=== PATIENT | male | born 1975 | race Caucasian/White ===

== ENCOUNTER 2021-05-01 18:07 | Emergency (ER) | payer OTHER, SELFPAY ==
[2021-05-01 18:12] VITALS: BP 140/93; PULSE 76; RESP 16; TEMP 36.9; O2SAT 100
[2021-05-01 18:18] VITALS: BP 140/93; PULSE 76; RESP 16; TEMP 36.9; O2SAT 100
--- NOTE | 2021-05-01 18:20 | ED.URI ---
HPI - URI/Sore Throat General Chief Complaint: Upper Respiratory Infection Stated Complaint: sore throat/swollen tonsils Time Seen by Provider: 05/01/21 18:07 Source: patient Mode of arrival: ambulatory Limitations: no limitations History of Present Illness HPI Narrative: 46-year-old male presents to [facility] with complaints of lymphadenopathy, sore throat and postnasal drip for the past 2 weeks. Patient has been taking [id number] ibuprofen with minimal relief. Patient denies sick contacts. Patient denies recent travel. Patient is a non-smoker. Patient denies fever, bodies, chills, nausea, vomiting, diarrhea, runny nose or nasal congestion. Patient will need does not currently have a primary care provider MD elicited complaint: sore throat and other (Postnasal drainage, lymph node swelling) Onset (ago): week(s) (2) Able to tolerate fluids by mouth: Yes Exacerbating factors: nothing Treatments prior to arrival: ibuprofen Related Data Allergies Allergy/AdvReac Type Severity Reaction Status Date / Time codeine Allergy Unknown Verified 12/31/16 13:41 Review of Systems Constitutional: Constitutional: Denies chills, Denies fatigue, Denies fever(s) and Denies weakness ENT: Denies dysphagia, Denies dizziness, Denies epistaxis and Reports sore throat Comments: Postnasal drip Cardiovascular: Cardiovascular: Denies chest pain, Denies rapid heart rate and Denies radiating jaw, neck or arm pain Respiratory: Respiratory: Denies chest congestion, Denies cough, Denies dyspnea and Denies wheezing Gastrointestinal: Gastrointestinal: Denies abdominal pain, Denies diarrhea, Denies nausea and Denies vomiting Integumentary/Breasts: Skin/Breast: Denies rash PMFSH Family History Family History Father Hypertension Family history of elevated blood lipids Sibling Hypertension Mother Hypertension Social History Social History Smoking status: Never smoker Smoking end date: 10/27/05 Alcohol intake: current Comments At time of signature, I agree with nursing past medical, surgical, social and family history. There is no relevant family history pertinent to the presenting complaint. Exam Const: General: no acute distress Nutritional Appearance: well nourished Orientation/consciousness: patient oriented x3 HENMT: Head: normal to inspection Ears: external ears normal, TM's normal bilaterally, EAC's normal and TM abnormal General nose exam: Normal nares present Face and sinus: sinuses nontender Mouth: Yes lip normal and Yes moist mucous membranes Throat: uvula midline Other: Erythema and mild swelling noted to bilateral tonsils. There is mild lymphadenopathy noted to posterior cervical region. Neck: Neck: normal visual inspection and lymphadenopathy bilateral posterior cervical soft Resp: Effort & Inspection: normal respiratory effort, not labored, not tachypneic and no use of accessory muscles Auscultation: clear to auscultation bilaterally Cardio: Rate: regular rate, not bradycardic and not tachycardic Rhythm: regular rhythm Heart sounds: no murmurs Skin: General skin exam: normal color Rashes: no rashes Wounds: no wounds Neuro: General: patient oriented x3 and moves all extremities Psych: Appearance: grossly normal Mental Status: mental status grossly normal Affect: normal affect Attitude: cooperative Thought content: Yes Normal thought content present Course Vital Signs Vital signs: Vital Signs Temperature 36.9 C 05/01/21 18:12 Pulse Rate 76 05/01/21 18:12 Respiratory Rate 16 05/01/21 18:12 Blood Pressure 140/93 H 05/01/21 18:12 Pulse Oximetry 100 05/01/21 18:12 Temperature 36.9 C 05/01/21 18:18 Pulse Rate 76 05/01/21 18:18 Respiratory Rate 16 05/01/21 18:18 Blood Pressure 140/93 H 05/01/21 18:18 Pulse Oximetry 100 05/01/21 18:18 MDM - URI/Sore Thro
== END 2021-05-01 18:46 | disposition home or self-care (01) ==
PROVIDERS: Emergency Provider Nurse Practitioner Family
DX: J02.9 Acute pharyngitis, unspecified (principal)
CPT/HCPCS: 36416; 86308; 87081; 87880; 99203; G0463

== ENCOUNTER 2021-07-16 10:18 | Outpatient (CLI) | payer OTHER, SELFPAY ==
--- NOTE | ~2021-07-16 | CT_ITS ---
EXAMINATION: CT sinus wo con DATE: 07/16/2021 10:48 INDICATION: Chronic sinusitis TECHNIQUE: Computed tomography (CT) of the paranasal sinuses was performed without intravenous contra st. The dose-length product was 329.94 mGy-cm. Automated exposure control and iterative reconstructio n technique were employed. COMPARISON: None FINDINGS: There is a mucous retention cyst in the left maxillary sinus. There is mild left maxillary mucosal thickening. There is leftward nasal septal deviation. Ostiomeatal units are patent. There is mucosal thickening of the sphenoid sinus. Mastoids are pneumatized. No mucoperiosteal reaction. No ai r-fluid levels. IMPRESSION: 1. Mild left maxillary and sphenoid sinus disease. Reviewed, dictated and finalized at location A.
== END 2021-07-16 10:19 | disposition home or self-care (01) ==
PROVIDERS: PCP Internal Medicine; Visit Provider Internal Medicine
DX: J32.9 Chronic sinusitis, unspecified (principal)
CPT/HCPCS: 70486

== ENCOUNTER 2021-09-12 13:45 | Emergency (ER) | payer OTHER, SELFPAY ==
[2021-09-12 14:00] VITALS: BP 149/92; PULSE 80; RESP 16; TEMP 36.8; O2SAT 98
--- NOTE | 2021-09-12 14:02 | ED.URI ---
HPI - URI/Sore Throat General Chief Complaint: Upper Respiratory Infection Stated Complaint: SORE THROAT Time Seen by Provider: 09/12/21 13:50 Source: patient and RN notes reviewed History of Present Illness HPI Narrative: Patient is a 46-year-old male who presents the urgent care with complaints of a sore throat since Friday. Patient states that he took NyQuil last night. Also reports of a mild cough and congestion. Patient states he has had the Pfizer Covid vaccine and has not had Covid in the past. Denies of any known exposure to Covid or strep. States that his girlfriend is a nurse and was wanting him to obtain a rapid Covid test . Patient denies of any fever, chills, nausea, vomiting. No other acute complaints. No acute distress noted. Patient read the plan of care. Some parts of this dictation were generated by voice recognition software and may contain typographical and/or grammatical inaccuracies. Related Data Allergies Allergy/AdvReac Type Severity Reaction Status Date / Time codeine Allergy Unknown unknown Verified 07/23/21 11:06 Review of Systems Review of Systems: CONSTITUTIONAL: Denies fever, chills, or sweats. EYES: Denies visual changes, redness, or discharge. ENT: Denies rhinorrhea, congestion, otalgia. Reports of sore throat CARDIOVASCULAR: Denies chest pain, palpitations, or edema. RESPIRATORY: Reports a mild cough without dyspnea GASTROINTESTINAL: Denies abdominal pain, nausea, vomiting, or diarrhea. GENITOURINARY: Denies dysuria or hematuria. SKIN: Denies rash or itching. MUSCULOSKELETAL: Denies back pain, joint pain, or myalgia. NEUROLOGIC: Denies headache, numbness, or weakness. All other systems reviewed are negative, except as documented in HPI. 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 There is no relevant family history pertinent to the patient complaint. Exam Narrative: GENERAL: This is a well-nourished, well-developed patient, in no apparent distress. HEAD: normocephalic, atraumatic. Mild frontal sinus pressure EYES: PERRL. Sclera clear/white. Vision is grossly intact. EARS: External ears normal, auditory canals clear and without drainage, TMs normal without perforation. Hearing grossly intact. NOSE: External nose normal with no obvious nasal discharge, mildly erythemic nares with clear yellow rhinorrhea. THROAT: Mucous membranes moist, posterior pharynx clear. Moderate postnasal drainage NECK: Neck supple CARDIOVASCULAR: Regular rate and rhythm without murmurs, gallops, or rubs. RESPIRATORY: Clear to auscultation. Breath sounds equal bilaterally. No wheezes, rales, or rhonchi. SKIN: warm, intact with no suspicious lesions or rash, good texture and turgor. NEURO: awake, alert, and oriented to person, place and time. There were no obvious focal neurologic abnormalities. EXTREMITIES: No clubbing, cyanosis, or edema. Course Vital Signs Vital signs: Vital Signs Temperature 98.2 F 09/12/21 14:00 Pulse Rate 80 09/12/21 14:00 Respiratory Rate 16 09/12
== END 2021-09-12 14:34 | disposition home or self-care (01) ==
PROVIDERS: Emergency Provider Nurse Practitioner Family; PCP Internal Medicine
DX: J02.9 Acute pharyngitis, unspecified (principal); Z20.822 Contact with and (suspected) exposure to COVID-19; E78.5 Hyperlipidemia, unspecified
CPT/HCPCS: 87081; 87426; 87880; 99213; C9803; G0463

== ENCOUNTER 2022-12-30 13:21 | Emergency (ER) | payer OTHER, SELFPAY ==
--- NOTE | ~2022-12-30 | XR_ITS ---
EXAMINATION: XR chest 2V DATE: 12/30/2022 13:49 INDICATION: Midsternal chest pain. TECHNIQUE: Frontal and lateral views of the chest were obtained. COMPARISON: None. FINDINGS: There is no pneumonia, pleural effusion, or pneumothorax. The heart size is normal. IMPRESSION: 1. No acute cardiopulmonary disease. Reviewed, dictated and finalized at location A. [facility]
--- NOTE | 2022-12-30 13:23 | ECG_ITS ---
Measurements Intervals [place] Rate: 84 P: 26 SC: 152 QRS: 11 QRSD: 90 T: 48 QT: 338 QTc: 401 Interpretive Statements SINUS RHYTHM DELAYED PRECORDIAL R/S TRANSITION MINIMAL Q WAVES- HIGH LATERAL LEADS BORDERLINE ECG NO PREVIOUS ECG AVAILABLE FOR COMPARISON Electronically Signed On 12-30-2022 16:44:05 [employer] by Joanthon Soriano D.O.
[2022-12-30 13:24] VITALS: BP 159/95; PULSE 88; RESP 16; TEMP 36.9; O2SAT 99
[2022-12-30 13:41] LABS: Basophils Absolute Auto 0.1 K/mm3 (0.0-0.1); Basophils Percent Auto 0.7 % (0.2-1.2); Eosinophils Percent Auto 0.4 % (0-4.4); Hematocrit 45.4 % (42.0-52.0); Hemoglobin 14.6 g/dL (14.0-18.0); Immature Granulocyte Absolute 0.01 K/mm3 (0.00-0.031); Immature Granulocyte Percent A 0.1 % (0-0.5); Lymphocytes Absolute Auto 1.81 K/mm3 (0.9-3.2); Lymphocytes Percent Auto 27.1 % (18.3-44.2); Mean Corpuscular HGB Conc 32.2 g/dl (32-36); Mean Corpuscular Hemoglobin 26.8 pg (26-34); Mean Corpuscular Volume 83.3 fl (80-100); Mean Platelet Volume 9.4 fl (7.4-10.4); Monocytes Absolute Auto 0.5 K/mm3 (0.1-0.6); Monocytes Percent Auto 7.3 % (2.6-8.5); Neutrophils Absolute Auto 4.3 K/mm3 (1.3-6.7); Neutrophils Percent Auto 64.4 % (45.5-73.1); Platelet Count Result 285 k/mm3 (150-375); Red Blood Count 5.45 M/mm3 (4.6-6.20); Red Cell Distribution Width 12.8 % (11.5-14.5); White Blood Count 6.7 K/mm3 (4.5-10.0)
[2022-12-30 13:52] LABS: Alanine Aminotransferase 36 U/L (6-50); Albumin Level 4.9 g/dL (3.5-5.1); Alkaline Phosphatase 49 U/L (38-126); Anion Gap 9 mmol/L (8-16); Aspartate Amino Transferase 33 U/L (17-59); Bilirubin,Total 0.7 mg/dL (0.2-1.3); Blood Urea Nitrogen 12 mg/dL (9-20); Calcium 9.2 mg/dL (8.4-10.2); Carbon Dioxide 26 mmol/L (22-30); Chloride 105 mmol/L (98-107); Estimated CRCL calculation 96 ml/min; Estimated Glomerular Filt Rate > 60; Glucose 103 mg/dL (65-110); Lipase 73 U/L (23-300); Potassium 4.7 mmol/L (3.4-5.0); Prothrombin Time 12.5 Seconds (11.1-14.7); Sodium 140 mmol/L (137-145)
[2022-12-30 13:53] LABS: Partial Thromboplastin Time 26.4 SECONDS (22.3-36.8)
[2022-12-30 14:02] LABS: Troponin I < 0.012 ng/mL (0.000-0.034)
[2022-12-30 19:26] LABS: Troponin I < 0.012 ng/mL (0.000-0.034)
--- NOTE | 2022-12-30 19:59 | PC.NURSE ---
Patient denies chest pain at this time, but states when he is walking he gets pain in the epigastric area that radiates to his left shoulde.
[2022-12-30 20:00] VITALS: BP 170/105; PULSE 87; RESP 20; O2SAT 100
--- NOTE | 2022-12-30 20:54 | ED.GENADULT ---
HPI - General Adult General Chief complaint: Chest Pain Stated complaint: abd/chest pain Time Seen by Provider: 12/30/22 19:59 History of Present Illness HPI narrative: this is a 47-year-old male presenting ED with a chief complaint of abdominal and chest pain. The pain started yesterday at 1:00 p.m.. He described as a sharp pain that is in his epigastric area, between his shoulder blades and in the center of his chest. It was 8 out of 10 in intensity yesterday but improved without intervention. It was gradual in onset. He has never had pain like this before. He then went to the gym again today while on the treadmill started to experience the pain again. Says the pain improved when he sat down. There was some nausea but no associated vomiting. He did say became slightly diaphoretic. He denies shortness of breath, fever, chills, productive cough, lower extremity edema. Patient states he has multiple family members who suffered heart attacks in their 40s. Patient is concerned that he is having a heart attack. Related Data Allergies Allergy/AdvReac Type Severity Reaction Status Date / Time codeine Allergy Unknown unknown Verified 07/23/21 11:06 [facility] Past Medical History Medical History Anxiety Benign essential hypertension Other and unspecified hyperlipidemia Routine medical exam RUQ abdominal pain Family History Family History Sibling Hypertension Diabetes mellitus Depression Anxiety Multiple sclerosis Mother Hypertension Diabetes mellitus Heart disease Father Hypertension Social History Social History Smoking status: Never smoker Smoking end date: 10/27/05 Alcohol intake: never Substance use: never Living arrangements: with family Occupation/Education: occupation 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 EYES: EOMI, NOSE: Atraumatic NECK: Trachea midline RESPIRATORY: No increased rate of breathing, clear to auscultation CARDIOVASCULAR: RRR, no peripheral edema ABDOMINAL: Non-distended, nontender no guarding or rebound MUSCULOSKELETAL: No obvious deformities NEURO: Alert. Moving 4/4 extremities SKIN:: Warm, dry. Normal color PSYCHIATRIC: Anxious Course Vital Signs Vital signs: Vital Signs Temperature 98.4 F 12/30/22 13:24 Pulse Rate 88 12/30/22 13:24 Respiratory Rate 16 12/30/22 13:24 Blood Pressure 159/95 H 12/30/22 13:24 Pulse Oximetry 99 12/30/22 13:24 Oxygen Delivery Room Air 12/30/22 13:24 Temperature 98.4 F 12/30/22 13:24 Pulse Rate 87 12/30/22 20:00 Respiratory Rate 20 12/30/22 20:00 Blood Pressure 170/105 H 12/30/22 20:00 Pulse Oximetry 100 12/30/22 20:00 Oxygen Delivery Room Air 12/30/22 13:24 Medical Decision Making MDM Narrative Medical decision making narrative: -Presentation: 47-year-old male presenting with intermittent abdominal pain, chest pain and back pain. Patient is not currently experiencing any pain -DDX includes but is not limited to: ACS, GERD, pneumonia, anxiety -Co-morbidities complicating care: anxiety, hypertension, family history of early DE in several uncles -Social determinants of health: patient is employed, lives with his -External Chart Review: the previous clinic visits for chronic sinusitis -Hx from independent Sources: none -Discussion of Management/Consultants: none -Independent interpretation of studies: Independent EKG interpretation: Rhythm [sinus], Rate [84], [place] -[normal], [place] -[normal], QRS [narrow], QTC [normal], T waves -[negative for concerning inversions], ST Segments - [[place]
[2022-12-30 21:03] LABS: Troponin I < 0.012 ng/mL (0.000-0.034)
== END 2022-12-30 21:30 | disposition home or self-care (01) ==
PROVIDERS: Emergency Medicine; Emergency Provider Emergency Medicine
DX: R10.13 Epigastric pain (principal); R07.9 Chest pain, unspecified; I10 Essential (primary) hypertension
CPT/HCPCS: 36415; 71046; 80053; 83690; 84484; 85025; 85610; 85730; 93005; 99284